=== PATIENT | female | born 1965 | race Caucasian/White ===

== ENCOUNTER 2016-12-01 19:30 | Emergency (ER) | payer SELFPAY ==
[~2016-12-01] VITALS: Ht 149.9 cm; Wt 108.9 kg
[2016-12-02 03:14] VITALS: BP 140/92
== END 2016-12-02 02:05 | disposition home or self-care (01) ==
LOC: ED 19:30
DX: S92.902A Unspecified fracture of left foot, initial encounter for closed fracture (principal); W01.0XXA Fall on same level from slipping, tripping and stumbling without subsequent striking against object, initial encounter; Y93.01 Activity, walking, marching and hiking; Y99.8 Other external cause status; Y92.89 Other specified places as the place of occurrence of the external cause

== ENCOUNTER 2017-01-10 12:42 | Emergency (ER) | payer OTHER ==
[~2017-01-10] VITALS: Ht 149.9 cm; Wt 111.8 kg
[2017-01-10 14:59] VITALS: BP 143/92
== END 2017-01-10 15:00 | disposition home or self-care (01) ==
LOC: ED 12:42
DX: B02.9 Zoster without complications (principal)